=== PATIENT | male | born 1930 | race Caucasian/White ===

== ENCOUNTER 2017-08-03 17:01 | Inpatient (IN) | payer MEDICARE, OTHER ==
[~2017-08-03] VITALS: Ht 182.9 cm; Wt 79.5 kg
[2017-08-03] MEDS ORDERED: normal saline 1000ML IV soln IVB ONE (20:10)
[2017-08-03 20:15] LABS: BASOPHILS % (AUTO) 0.1 % (0-1); EOSINOPHILS % (AUTO) 0 % (0-6); HEMATOCRIT 34.8 % (42.0-52.0); HEMOGLOBIN 12.1 g/dl (14.0-17.9); LYMPHOCYTES # (AUTO) 0.7 X10'3 (1.1-4.8); LYMPHOCYTES % (AUTO) 3.1 % (21-51); MEAN CORPUSCULAR HEMOGLOBIN 29.8 PG (27.0-31.0); MEAN CORPUSCULAR HGB CONC 34.6 % (33.0-36.5); MEAN PLATELET VOLUME 6.5 FL (7.4-10.4); MONOCYTES # (AUTO) 0.9 X10'3 (0-0.9); MONOCYTES % (AUTO) 4.2 % (2-12); NEUTROPHILS # (AUTO) 20.8 X10'3 (1.8-7.7); NEUTROPHILS % (AUTO) 92.6 % (42-75); PLATELET COUNT 316 X10'3 (140-440); RED BLOOD COUNT 4.05 X10'6 (4.70-6.10); WHITE BLOOD COUNT 22.4 X10'3 (4.5-11.0)
[2017-08-03 20:32] LABS: ALANINE AMINOTRANSFERASE 19 U/L (12-78); ALBUMIN 2.7 G/DL (3.4-5.0); ALBUMIN/GLOBULIN RATIO 0.7 (1.1-1.5); ALKALINE PHOSPHATASE 82 IU/L (46-116); ANION GAP 12 (8-16); ASPARTATE AMINO TRANSFERASE 15 U/L (10-37); BILIRUBIN,TOTAL 1.6 MG/DL (0.1-1.0); BLOOD UREA NITROGEN 19 MG/DL (7-18); BUN/CREATININE RATIO 19.8 (5.4-32.0); CALCIUM 8.3 MG/DL (8.5-10.1); CHLORIDE 98 MMOL/L (99-107); CREATININE 0.96 MG/DL (0.60-1.10); GLUCOSE 196 MG/DL (70-104); MAGNESIUM 1.5 MG/DL (1.5-2.4); SODIUM 135 MMOL/L (135-145); TOTAL CARBON DIOXIDE 25.3 MMOL/L (24-32); TOTAL PROTEIN 6.7 G/DL (6.4-8.2); eGFR 74 ML/MIN
[2017-08-03 20:47] LABS: INR 1.7 INR; PARTIAL THROMBOPLASTIN TIME 35 SECONDS (22-32); PROTHROMBIN TIME 17.1 SECONDS (9.0-12.0)
[2017-08-03] MEDS ORDERED: CefTRIAXone 2gm/NS 100ml IVPB 100 ML IV ONE (20:55)
[2017-08-03] MEDS ORDERED: normal saline 1000ML IV soln IV ONE (20:55)
[2017-08-03 20:59] LABS: PLATELET ESTIMATE NORMAL; TOTAL CELLS COUNTED 100
[2017-08-03] MEDS ORDERED: ACET-2319 PO (21:59)
[2017-08-03] MEDS ORDERED: CHOL50004 PO (21:59)
[2017-08-03] MEDS ORDERED: GLIP5TAB13 PO (21:59)
[2017-08-03] MEDS ORDERED: WARF2.5T PO (21:59)
[2017-08-03] MEDS ORDERED: ATOR20TA PO (21:59)
[2017-08-03] MEDS ORDERED: OMEP40CA37 PO (21:59)
[2017-08-03] MEDS ORDERED: METF500T PO (21:59)
[2017-08-03] MEDS ORDERED: WARF5TAB PO (21:59)
[2017-08-03 22:03] LABS: CLARITY,URINE CLEAR (Clear); COLOR,URINE YELLOW (Yellow); GLUCOSE, URINE NEGATIVE (Neg); KETONES,URINE 40 mg/dl (Neg); LEUKOCYTE ESTERASE ,URINE NEGATIVE (Neg); NITRITES, URINE NEGATIVE (Neg); OCCULT BLOOD,URINE NEGATIVE (Neg); PH,URINE 5.5 (4.8-8.0); PROTEIN,URINE TRACE mg/dl (Neg)
[2017-08-03 22:10] LABS: UA COLLECTION TYPE STRAIGHT CATH
[2017-08-03 22:12] LABS: BACTERIA,URINE FEW /HPF (Neg); RBC,URINE NONE SEEN /HPF (0-2); SQUAMOUS EPITHELIAL CELL,UR FEW /LPF (FEW); WBC,URINE NONE SEEN /HPF (0-4)
[2017-08-03] MEDS ORDERED: magnesium 2GM in 50ml NS 50 ML IV PRN (22:25)
[2017-08-03] MEDS ORDERED: magnesium hydroxide 30ml (MOM) UD suspension PO PRN (22:25)
[2017-08-03] MEDS ORDERED: magnesium 4gm in 100ml NS 100 ML IV PRN (22:25)
[2017-08-03] MEDS ORDERED: ondansetron/PF 4mg/2ml inj IV PRN (22:25)
[2017-08-03] MEDS ORDERED: mag hydrox/Alum hydrox/simeth 30ml oral suspension PO PRN (22:25)
[2017-08-03] MEDS ORDERED: potassium Cl 40MEQ/NS 500ml 500 ML IV PRN ×2 (22:25)
[2017-08-03] MEDS ORDERED: acetaminophen 325mg tablet PO PRN (22:25)
[2017-08-03] MEDS ORDERED: potassium Cl 20 mEq SR tablet PO PRN (22:25)
[2017-08-03] MEDS ORDERED: dextrose 50%-water 50ml dispensing syringe IV PRN ×2 (22:35)
[2017-08-03] MEDS ORDERED: insulin Lispro (HumaLOG) vial - multi-dose SQ SCH (22:35)
[2017-08-03] MEDS ORDERED: glucagon, human recombinant 1mg kit SUBCUT PRN (22:35)
[2017-08-03] MEDS ORDERED: MESSAGE TO PHARMACY PO ONE (22:35)
[2017-08-03] MEDS ORDERED: dextrose ORAL solution 15 GM/59 ML bottle PO PRN ×2 (22:35)
[2017-08-03] MEDS: normal saline 1000ml 1,000 ML IV SCH (22:56)
[2017-08-03 23:01] LABS: HEMOGLOBIN A1C 7.6 % (4.5-6.2)
[2017-08-04 06:27] LABS: BASOPHILS % (AUTO) 0.1 % (0-1); EOSINOPHILS # (AUTO) 0.3 X10'3 (0-0.9); EOSINOPHILS % (AUTO) 2.1 % (0-6); HEMATOCRIT 30.1 % (42.0-52.0); HEMOGLOBIN 10.3 g/dl (14.0-17.9); LYMPHOCYTES # (AUTO) 0.7 X10'3 (1.1-4.8); MEAN CORPUSCULAR HEMOGLOBIN 29.5 PG (27.0-31.0); MEAN CORPUSCULAR HGB CONC 34.3 % (33.0-36.5); MEAN PLATELET VOLUME 6.8 FL (7.4-10.4); MONOCYTES % (AUTO) 7.3 % (2-12); NEUTROPHILS # (AUTO) 11.8 X10'3 (1.8-7.7); NEUTROPHILS % (AUTO) 85.5 % (42-75); PLATELET COUNT 266 X10'3 (140-440); RED CELL DISTRIBUTION WIDTH 14.2 % (11.5-14.5); WHITE BLOOD COUNT 13.8 X10'3 (4.5-11.0)
[2017-08-04 06:40] LABS: ALBUMIN 2.3 G/DL (3.4-5.0); ANION GAP 9 (8-16); BLOOD UREA NITROGEN 17 MG/DL (7-18); BUN/CREATININE RATIO 19.1 (5.4-32.0); CALCIUM 7.6 MG/DL (8.5-10.1); CHLORIDE 104 MMOL/L (99-107); CREATININE 0.89 MG/DL (0.60-1.10); GLUCOSE 150 MG/DL (70-104); MAGNESIUM 1.5 MG/DL (1.5-2.4); POTASSIUM 3.7 MMOL/L (3.5-5.1); SODIUM 139 MMOL/L (135-145); TOTAL CARBON DIOXIDE 26.3 MMOL/L (24-32); eGFR 81 ML/MIN
[2017-08-04] MEDS ORDERED: glipizide 5mg tablet PO SCH (08:00)
[2017-08-04] MEDS: K and/or MAG REPLACEMENT MC SCH (08:00)
[2017-08-04] MEDS ORDERED: non-formulary drug (Omeprazole (Prilosec) 1 CAP) PO SCH (08:00)
[2017-08-04] MEDS ORDERED: CefTRIAXone/D5W-Rocephin 1gm 50 ML IV SCH (08:00)
[2017-08-04] MEDS: metFORMIN 500mg tablet PO SCH ×2 (08:14→17:24)
[2017-08-04] MEDS: pantoprazole 40mg Tablet.DR PO SCH (08:15)
[2017-08-04] MEDS: normal saline 1000ml 1,000 ML IV SCH (12:13)
[2017-08-04 18:00] VITALS: BP 131/77
[2017-08-04] MEDS: lactobacillus rhamnosus 10,000 MMU CELLS/CAPSULE PO SCH (20:26)
[2017-08-04] MEDS: atorvastatin 20mg tablet PO SCH (20:26)
[2017-08-04] MEDS: warfarin 2.5mg tablet PO SCH (20:27)
[2017-08-04] MEDS: insulin glargine (Lantus) pen - multi-dose SQ SCH (21:14)
[2017-08-04 23:00] VITALS: BP 98/55
[2017-08-05] MEDS: normal saline 1000ml 1,000 ML IV SCH ×2 (01:03→06:52)
[2017-08-05 03:00] VITALS: BP 97/54
[2017-08-05 05:43] LABS: BASOPHILS % (AUTO) 0.2 % (0-1); EOSINOPHILS # (AUTO) 0.2 X10'3 (0-0.9); EOSINOPHILS % (AUTO) 1.8 % (0-6); HEMATOCRIT 29.5 % (42.0-52.0); HEMOGLOBIN 10.3 g/dl (14.0-17.9); LYMPHOCYTES # (AUTO) 0.6 X10'3 (1.1-4.8); LYMPHOCYTES % (AUTO) 4.4 % (21-51); MEAN CORPUSCULAR HEMOGLOBIN 29.7 PG (27.0-31.0); MEAN CORPUSCULAR HGB CONC 34.8 % (33.0-36.5); MEAN CORPUSCULAR VOLUME 85.4 FL (78-98); MEAN PLATELET VOLUME 6.8 FL (7.4-10.4); MONOCYTES # (AUTO) 0.9 X10'3 (0-0.9); MONOCYTES % (AUTO) 7.4 % (2-12); NEUTROPHILS # (AUTO) 10.8 X10'3 (1.8-7.7); NEUTROPHILS % (AUTO) 86.2 % (42-75); PLATELET COUNT 273 X10'3 (140-440); RED BLOOD COUNT 3.45 X10'6 (4.70-6.10); RED CELL DISTRIBUTION WIDTH 13.9 % (11.5-14.5); WHITE BLOOD COUNT 12.5 X10'3 (4.5-11.0)
[2017-08-05 05:52] LABS: INR 2.1 INR; PROTHROMBIN TIME 20.8 SECONDS (9.0-12.0)
[2017-08-05 05:54] LABS: ALBUMIN 2.1 G/DL (3.4-5.0); ANION GAP 8 (8-16); BLOOD UREA NITROGEN 14 MG/DL (7-18); BUN/CREATININE RATIO 17.5 (5.4-32.0); CALCIUM 7.5 MG/DL (8.5-10.1); CHLORIDE 104 MMOL/L (99-107); GLUCOSE 127 MG/DL (70-104); MAGNESIUM 1.4 MG/DL (1.5-2.4); POTASSIUM 3.4 MMOL/L (3.5-5.1); SODIUM 138 MMOL/L (135-145); TOTAL CARBON DIOXIDE 26.3 MMOL/L (24-32); eGFR > 90 ML/MIN
[2017-08-05 06:30] VITALS: BP 98/51
[2017-08-05] MEDS: magnesium Cl slow-release 64mg tablet PO PRN ×2 (06:51→21:01)
[2017-08-05] MEDS: potassium Cl 20 mEq SR tablet PO PRN ×3 (06:51→15:44)
[2017-08-05] MEDS: metFORMIN 500mg tablet PO SCH ×2 (06:51→16:51)
[2017-08-05] MEDS: pantoprazole 40mg Tablet.DR PO SCH (06:53)
[2017-08-05] MEDS: K and/or MAG REPLACEMENT MC SCH (08:00)
[2017-08-05] MEDS: CefTRIAXone/D5W-Rocephin 1gm 50 ML IV SCH (08:30)
[2017-08-05] MEDS: lactobacillus rhamnosus 10,000 MMU CELLS/CAPSULE PO SCH ×2 (08:30→21:03)
[2017-08-05 11:01] VITALS: BP 110/63
[2017-08-05 15:00] VITALS: BP 105/64
[2017-08-05] MEDS: atorvastatin 20mg tablet PO SCH (21:03)
[2017-08-05] MEDS: warfarin 2.5mg tablet PO SCH (21:05)
[2017-08-05] MEDS: insulin glargine (Lantus) pen - multi-dose SQ SCH (21:18)
[2017-08-05 23:00] VITALS: BP 126/67
[2017-08-06] MEDS: normal saline 1000ml 1,000 ML IV SCH ×2 (03:43→11:13)
[2017-08-06 05:23] LABS: BASOPHILS % (AUTO) 0.2 % (0-1); EOSINOPHILS # (AUTO) 0.1 X10'3 (0-0.9); EOSINOPHILS % (AUTO) 0.9 % (0-6); HEMATOCRIT 29.7 % (42.0-52.0); HEMOGLOBIN 10.2 g/dl (14.0-17.9); LYMPHOCYTES # (AUTO) 0.5 X10'3 (1.1-4.8); LYMPHOCYTES % (AUTO) 5.2 % (21-51); MEAN CORPUSCULAR HEMOGLOBIN 29.3 PG (27.0-31.0); MEAN CORPUSCULAR HGB CONC 34.4 % (33.0-36.5); MEAN CORPUSCULAR VOLUME 85.2 FL (78-98); MEAN PLATELET VOLUME 6.7 FL (7.4-10.4); MONOCYTES # (AUTO) 0.9 X10'3 (0-0.9); MONOCYTES % (AUTO) 8.3 % (2-12); NEUTROPHILS # (AUTO) 9.1 X10'3 (1.8-7.7); NEUTROPHILS % (AUTO) 85.4 % (42-75); PLATELET COUNT 277 X10'3 (140-440); RED BLOOD COUNT 3.48 X10'6 (4.70-6.10); RED CELL DISTRIBUTION WIDTH 13.9 % (11.5-14.5); WHITE BLOOD COUNT 10.7 X10'3 (4.5-11.0)
[2017-08-06 05:45] LABS: INR 2.3 INR; PROTHROMBIN TIME 22.8 SECONDS (9.0-12.0)
[2017-08-06 05:49] LABS: ALBUMIN 2.1 G/DL (3.4-5.0); ANION GAP 5 (8-16); BLOOD UREA NITROGEN 9 MG/DL (7-18); BUN/CREATININE RATIO 12.2 (5.4-32.0); CALCIUM 7.8 MG/DL (8.5-10.1); CHLORIDE 104 MMOL/L (99-107); CREATININE 0.74 MG/DL (0.60-1.10); GLUCOSE 110 MG/DL (70-104); MAGNESIUM 1.4 MG/DL (1.5-2.4); POTASSIUM 3.7 MMOL/L (3.5-5.1); SODIUM 137 MMOL/L (135-145); TOTAL CARBON DIOXIDE 27.6 MMOL/L (24-32); eGFR > 90 ML/MIN
[2017-08-06 07:00] VITALS: BP 110/52
[2017-08-06] MEDS: K and/or MAG REPLACEMENT MC SCH (08:00)
[2017-08-06] MEDS: metFORMIN 500mg tablet PO SCH (09:07)
[2017-08-06] MEDS: pantoprazole 40mg Tablet.DR PO SCH (09:07)
[2017-08-06] MEDS: lactobacillus rhamnosus 10,000 MMU CELLS/CAPSULE PO SCH ×2 (09:07→21:39)
[2017-08-06] MEDS: CefTRIAXone/D5W-Rocephin 1gm 50 ML IV SCH (09:08)
[2017-08-06 11:00] VITALS: BP 130/60
[2017-08-06 14:37] VITALS: BP 108/58
[2017-08-06] MEDS: cefazolin 1gm/NS 100mL 100 ML IV SCH (19:13)
[2017-08-06 20:00] VITALS: BP 136/65
[2017-08-06] MEDS: atorvastatin 20mg tablet PO SCH (21:39)
[2017-08-06] MEDS: warfarin 2.5mg tablet PO SCH (21:40)
[2017-08-06] MEDS: insulin glargine (Lantus) pen - multi-dose SQ SCH (22:16)
[2017-08-07] VITALS: BP 139/64
[2017-08-07] MEDS: cefazolin 1gm/NS 100mL 100 ML IV SCH ×4 (00:09→21:00)
[2017-08-07] MEDS: normal saline 1000ml 1,000 ML IV SCH (05:21)
[2017-08-07 05:49] LABS: BASOPHILS % (AUTO) 0.2 % (0-1); EOSINOPHILS # (AUTO) 0.2 X10'3 (0-0.9); EOSINOPHILS % (AUTO) 2.4 % (0-6); HEMATOCRIT 29.8 % (42.0-52.0); HEMOGLOBIN 10.2 g/dl (14.0-17.9); LYMPHOCYTES # (AUTO) 0.5 X10'3 (1.1-4.8); LYMPHOCYTES % (AUTO) 4.9 % (21-51); MEAN CORPUSCULAR HEMOGLOBIN 29.3 PG (27.0-31.0); MEAN CORPUSCULAR HGB CONC 34.1 % (33.0-36.5); MEAN CORPUSCULAR VOLUME 85.9 FL (78-98); MONOCYTES # (AUTO) 1.1 X10'3 (0-0.9); MONOCYTES % (AUTO) 10.6 % (2-12); NEUTROPHILS # (AUTO) 8.5 X10'3 (1.8-7.7); NEUTROPHILS % (AUTO) 81.9 % (42-75); PLATELET COUNT 288 X10'3 (140-440); RED BLOOD COUNT 3.47 X10'6 (4.70-6.10); RED CELL DISTRIBUTION WIDTH 13.7 % (11.5-14.5); WHITE BLOOD COUNT 10.3 X10'3 (4.5-11.0)
[2017-08-07 05:52] LABS: INR 2.3 INR; PROTHROMBIN TIME 23.4 SECONDS (9.0-12.0)
[2017-08-07 06:00] LABS: ALBUMIN 2.1 G/DL (3.4-5.0); ANION GAP 8 (8-16); BLOOD UREA NITROGEN 9 MG/DL (7-18); CALCIUM 7.8 MG/DL (8.5-10.1); CHLORIDE 102 MMOL/L (99-107); CREATININE 0.75 MG/DL (0.60-1.10); GLUCOSE 96 MG/DL (70-104); POTASSIUM 3.7 MMOL/L (3.5-5.1); SODIUM 138 MMOL/L (135-145); TOTAL CARBON DIOXIDE 28.5 MMOL/L (24-32); eGFR > 90 ML/MIN
[2017-08-07 07:00] VITALS: BP 125/70
[2017-08-07] MEDS: K and/or MAG REPLACEMENT MC SCH (08:00)
[2017-08-07] MEDS: pantoprazole 40mg Tablet.DR PO SCH (08:14)
[2017-08-07] MEDS: lactobacillus rhamnosus 10,000 MMU CELLS/CAPSULE PO SCH ×2 (08:14→21:16)
[2017-08-07 11:00] VITALS: BP 129/74
[2017-08-07 14:26] VITALS: BP 125/61
[2017-08-07 16:51] VITALS: BP 113/63
[2017-08-07 20:00] VITALS: BP 130/67
[2017-08-07] MEDS: atorvastatin 20mg tablet PO SCH (21:09)
[2017-08-07] MEDS: warfarin 2.5mg tablet PO SCH (21:10)
[2017-08-07] MEDS: insulin glargine (Lantus) pen - multi-dose SQ SCH (21:32)
[2017-08-08] VITALS: BP 114/61
[2017-08-08] MEDS: normal saline 1000ml 1,000 ML IV SCH ×2 (03:00→09:03)
[2017-08-08 06:13] LABS: BASOPHILS % (AUTO) 0.1 % (0-1); EOSINOPHILS # (AUTO) 0.1 X10'3 (0-0.9); EOSINOPHILS % (AUTO) 0.7 % (0-6); HEMATOCRIT 28.4 % (42.0-52.0); HEMOGLOBIN 9.7 g/dl (14.0-17.9); LYMPHOCYTES # (AUTO) 0.4 X10'3 (1.1-4.8); LYMPHOCYTES % (AUTO) 3.6 % (21-51); MEAN CORPUSCULAR HEMOGLOBIN 29.2 PG (27.0-31.0); MEAN CORPUSCULAR HGB CONC 34.1 % (33.0-36.5); MEAN CORPUSCULAR VOLUME 85.7 FL (78-98); MEAN PLATELET VOLUME 6.8 FL (7.4-10.4); MONOCYTES # (AUTO) 1.1 X10'3 (0-0.9); MONOCYTES % (AUTO) 9.7 % (2-12); NEUTROPHILS # (AUTO) 9.8 X10'3 (1.8-7.7); NEUTROPHILS % (AUTO) 85.9 % (42-75); PLATELET COUNT 279 X10'3 (140-440); RED BLOOD COUNT 3.31 X10'6 (4.70-6.10); RED CELL DISTRIBUTION WIDTH 13.7 % (11.5-14.5); WHITE BLOOD COUNT 11.5 X10'3 (4.5-11.0)
[2017-08-08 06:17] LABS: INR 2.2 INR
[2017-08-08 06:37] LABS: ALBUMIN 1.9 G/DL (3.4-5.0); ANION GAP 4 (8-16); BLOOD UREA NITROGEN 10 MG/DL (7-18); BUN/CREATININE RATIO 11.8 (5.4-32.0); CALCIUM 7.6 MG/DL (8.5-10.1); CHLORIDE 102 MMOL/L (99-107); CREATININE 0.85 MG/DL (0.60-1.10); GLUCOSE 83 MG/DL (70-104); MAGNESIUM 1.8 MG/DL (1.5-2.4); POTASSIUM 3.7 MMOL/L (3.5-5.1); SODIUM 135 MMOL/L (135-145); TOTAL CARBON DIOXIDE 28.6 MMOL/L (24-32); eGFR 85 ML/MIN
[2017-08-08 07:50] VITALS: BP 96/52
[2017-08-08] MEDS: K and/or MAG REPLACEMENT MC SCH (08:00)
[2017-08-08] MEDS: lactobacillus rhamnosus 10,000 MMU CELLS/CAPSULE PO SCH (09:18)
[2017-08-08] MEDS: cefazolin 1gm/NS 100mL 100 ML IV SCH (09:19)
[2017-08-08] MEDS: pantoprazole 40mg Tablet.DR PO SCH (09:19)
[2017-08-08 11:45] VITALS: BP 113/63
[2017-08-08] MEDS ORDERED: CEFA1VIA10 IV (13:18)
[2017-08-08] MEDS ORDERED: ceFAZolin inj. 1,000 MG in dextrose 5%-water 50ml 50 ML IV SCH (16:00)
== END 2017-08-08 16:52 | DRG 871 ==
LOC: ER 17:03 → ED HOLD 22:23 → PCU 3S 08-04 16:25 → SUR 3N 08-05 21:34
PROVIDERS: ADMIT Family Medicine; ATTEND Legal Medicine
DX: A41.1 Sepsis due to other specified staphylococcus (principal); G93.40 Encephalopathy, unspecified; I48.91 Unspecified atrial fibrillation; E11.65 Type 2 diabetes mellitus with hyperglycemia; E86.0 Dehydration; D64.9 Anemia, unspecified; N39.0 Urinary tract infection, site not specified; E78.5 Hyperlipidemia, unspecified; R79.1 Abnormal coagulation profile; Z66 Do not resuscitate; Z88.0 Allergy status to penicillin; Z79.899 Other long term (current) drug therapy; Z79.01 Long term (current) use of anticoagulants; Z87.442 Personal history of urinary calculi; Z82.49 Family history of ischemic heart disease and other diseases of the circulatory system
CPT/HCPCS: 36415; 71045; 80048; 80053; 81001; 82948; 83036; 83605; 83735; 84145; 85025; 85610; 85730; 87040; 87070; 87077; 87186; 93005; 93306; 96361; 96365; 97116; 97161; 97530; 99285; A4353; J0690; J0696; J1815; J3475; J7030; J7060

== ENCOUNTER 2017-09-08 13:02 | Inpatient (IN) | payer MEDICARE, OTHER ==
[~2017-09-08] VITALS: Ht 180.3 cm; Wt 70.0 kg
[~2017-09-08 13:02] MED LIST: ATOR20TA PO; CEFA1VIA10 IV; CHOL50004 PO; METF500T PO; OMEP40CA37 PO; WARF2.5T PO; WARF5TAB PO
[2017-09-08] MEDS ORDERED: normal saline 1000ML IV soln IVB ONE (13:10)
[2017-09-08 13:36] LABS: BASOPHILS % (AUTO) 0 % (0-1); EOSINOPHILS # (AUTO) 0.5 X10'3 (0-0.9); EOSINOPHILS % (AUTO) 2.3 % (0-6); HEMATOCRIT 30.3 % (42.0-52.0); HEMOGLOBIN 10.2 g/dl (14.0-17.9); LYMPHOCYTES # (AUTO) 0.3 X10'3 (1.1-4.8); LYMPHOCYTES % (AUTO) 1.4 % (21-51); MEAN CORPUSCULAR HEMOGLOBIN 28.1 PG (27.0-31.0); MEAN CORPUSCULAR HGB CONC 33.8 % (33.0-36.5); MEAN CORPUSCULAR VOLUME 83.1 FL (78-98); MEAN PLATELET VOLUME 7.2 FL (7.4-10.4); MONOCYTES # (AUTO) 0.9 X10'3 (0-0.9); MONOCYTES % (AUTO) 3.7 % (2-12); NEUTROPHILS # (AUTO) 21.8 X10'3 (1.8-7.7); NEUTROPHILS % (AUTO) 92.6 % (42-75); PLATELET COUNT 149 X10'3 (140-440); RED BLOOD COUNT 3.65 X10'6 (4.70-6.10); RED CELL DISTRIBUTION WIDTH 15.1 % (11.5-14.5); WHITE BLOOD COUNT 23.5 X10'3 (4.5-11.0)
[2017-09-08 13:44] LABS: PROTHROMBIN TIME 47.6 SECONDS (9.0-12.0)
[2017-09-08 13:50] LABS: INR 4.9 INR
[2017-09-08 13:53] LABS: ALANINE AMINOTRANSFERASE 12 U/L (12-78); ALBUMIN 2.1 G/DL (3.4-5.0); ALBUMIN/GLOBULIN RATIO 0.6 (1.1-1.5); ALKALINE PHOSPHATASE 93 IU/L (46-116); ANION GAP 10 (8-16); ASPARTATE AMINO TRANSFERASE 15 U/L (10-37); BILIRUBIN,TOTAL 1.4 MG/DL (0.1-1.0); BLOOD UREA NITROGEN 29 MG/DL (7-18); CALCIUM 7.9 MG/DL (8.5-10.1); CHLORIDE 100 MMOL/L (99-107); CREATININE 1.21 MG/DL (0.60-1.10); GLUCOSE 166 MG/DL (70-104); MAGNESIUM 1.7 MG/DL (1.5-2.4); SODIUM 132 MMOL/L (135-145); TOTAL CARBON DIOXIDE 21.6 MMOL/L (24-32); TOTAL PROTEIN 5.6 G/DL (6.4-8.2); eGFR 57 ML/MIN
[2017-09-08] MEDS ORDERED: CefTRIAXone 2gm/D5W 50ml 50 ML IV ONE (14:05)
[2017-09-08 14:23] LABS: CLARITY,URINE TURBID (Clear); COLOR,URINE YELLOW (Yellow); GLUCOSE, URINE NEGATIVE (Neg); KETONES,URINE 15 mg/dl (Neg); LEUKOCYTE ESTERASE ,URINE TRACE (Neg); NITRITES, URINE NEGATIVE (Neg); OCCULT BLOOD,URINE NEGATIVE (Neg); PROTEIN,URINE TRACE mg/dl (Neg)
[2017-09-08 14:28] LABS: UA COLLECTION TYPE FOLEY CATH
[2017-09-08 14:34] LABS: MUCUS STRANDS NONE SEEN /LPF (Neg); SQUAMOUS EPITHELIAL CELL,UR FEW /LPF (FEW); TRANSITIONAL EPI CELLS,URINE FEW /HPF
[2017-09-08 14:35] LABS: YEAST MANY /HPF (NEGATIVE)
[2017-09-08 14:36] LABS: BACTERIA,URINE 4+ /HPF (Neg); RBC,URINE NONE SEEN /HPF (0-2)
[2017-09-08 14:51] LABS: NEUTROPHILS % (MANUAL) 92 % (42-75); TOTAL CELLS COUNTED 100
[2017-09-08 14:52] LABS: ACANTHOCYTES FEW; BURR CELLS FEW; PLATELET ESTIMATE NORMAL
[2017-09-08] MEDS ORDERED: levoFLOXACIN-Levaquin 500mg/D5 100 ML IV ONE (15:25)
[2017-09-08] MEDS ORDERED: acetaminophen 325mg tablet PO ONE (16:05)
[2017-09-08] MEDS ORDERED: acetaminophen 325mg tablet ONE (16:08)
[2017-09-08] MEDS ORDERED: acetaminophen 325mg tablet PO PRN (16:10)
[2017-09-08] MEDS ORDERED: ondansetron/PF 4mg/2ml inj IV PRN (16:10)
[2017-09-08] MEDS ORDERED: glucagon, human recombinant 1mg kit SUBCUT PRN (16:15)
[2017-09-08] MEDS ORDERED: MESSAGE TO PHARMACY PO ONE (16:15)
[2017-09-08] MEDS ORDERED: dextrose 50%-water 50ml dispensing syringe IV PRN ×2 (16:15)
[2017-09-08] MEDS ORDERED: dextrose ORAL solution 15 GM/59 ML bottle PO PRN ×2 (16:15)
[2017-09-08] MEDS: normal saline 1000ml 1,000 ML IV SCH (16:55)
[2017-09-08] MEDS: insulin glargine (Lantus) pen - multi-dose SQ SCH (20:30)
[2017-09-08] MEDS: atorvastatin 20mg tablet PO SCH (22:08)
[2017-09-09] VITALS (7 sets, daily range): BP systolic 96–122; BP diastolic 39–52
[2017-09-09] MEDS ORDERED: aztreonam 1,000MG vial ONE (00:39)
[2017-09-09] MEDS: aztreonam inj. 1,000 MG in normal saline 100ml IV soln 100 ML IV SCH ×2 (00:44→08:27)
[2017-09-09] MEDS: normal saline 1000ml 1,000 ML IV SCH (00:48)
[2017-09-09] MEDS: pantoprazole 40mg Tablet.DR PO SCH (08:27)
[2017-09-09] MEDS: vitamin D (cholecalciferol) 1,000 unit tablet PO SCH (08:27)
[2017-09-09] MEDS ORDERED: DEXTROSE 5% IV SCH (12:00)
[2017-09-09] MEDS ORDERED: AZTREONAM IV SCH (12:00)
[2017-09-09] MEDS ORDERED: WATER IV SCH (12:00)
[2017-09-09] MEDS: aztreonam inj. 1,000 MG in dextrose 5%-water 50ml 50 ML IV SCH (16:10)
[2017-09-09 19:04] LABS: BASOPHILS % (AUTO) 0 % (0-1); EOSINOPHILS # (AUTO) 0.3 X10'3 (0-0.9); EOSINOPHILS % (AUTO) 1.7 % (0-6); HEMATOCRIT 31.8 % (42.0-52.0); HEMOGLOBIN 10.8 g/dl (14.0-17.9); LYMPHOCYTES # (AUTO) 0.4 X10'3 (1.1-4.8); LYMPHOCYTES % (AUTO) 2.3 % (21-51); MEAN CORPUSCULAR HEMOGLOBIN 28.3 PG (27.0-31.0); MEAN CORPUSCULAR HGB CONC 33.9 % (33.0-36.5); MEAN CORPUSCULAR VOLUME 83.7 FL (78-98); MEAN PLATELET VOLUME 7.5 FL (7.4-10.4); MONOCYTES # (AUTO) 1.2 X10'3 (0-0.9); MONOCYTES % (AUTO) 6.3 % (2-12); NEUTROPHILS # (AUTO) 17.8 X10'3 (1.8-7.7); NEUTROPHILS % (AUTO) 89.7 % (42-75); PLATELET COUNT 119 X10'3 (140-440); RED CELL DISTRIBUTION WIDTH 16.4 % (11.5-14.5); WHITE BLOOD COUNT 19.9 X10'3 (4.5-11.0)
[2017-09-09 19:14] LABS: ALBUMIN 2.1 G/DL (3.4-5.0); ANION GAP 11 (8-16); BLOOD UREA NITROGEN 37 MG/DL (7-18); BUN/CREATININE RATIO 26.1 (5.4-32.0); CHLORIDE 97 MMOL/L (99-107); CREATININE 1.42 MG/DL (0.60-1.10); GLUCOSE 174 MG/DL (70-104); POTASSIUM 5.1 MMOL/L (3.5-5.1); SODIUM 130 MMOL/L (135-145); TOTAL CARBON DIOXIDE 21.8 MMOL/L (24-32); eGFR 47 ML/MIN
[2017-09-09 19:18] LABS: PROTHROMBIN TIME 44.3 SECONDS (9.0-12.0)
[2017-09-09 19:26] LABS: INR 4.5 INR
[2017-09-09] MEDS: lactobacillus rhamnosus 10,000 MMU CELLS/CAPSULE PO SCH (19:51)
[2017-09-09] MEDS: insulin glargine (Lantus) pen - multi-dose SQ SCH (21:00)
[2017-09-09] MEDS: atorvastatin 20mg tablet PO SCH (21:44)
[2017-09-10] MEDS: aztreonam inj. 1,000 MG in dextrose 5%-water 50ml 50 ML IV SCH ×2 (00:09→07:11)
[2017-09-10 02:00] VITALS: BP 108/40
[2017-09-10 05:09] LABS: BASOPHILS % (AUTO) 0 % (0-1); EOSINOPHILS # (AUTO) 0.4 X10'3 (0-0.9); EOSINOPHILS % (AUTO) 2.5 % (0-6); HEMATOCRIT 28.8 % (42.0-52.0); HEMOGLOBIN 9.8 g/dl (14.0-17.9); LYMPHOCYTES # (AUTO) 0.4 X10'3 (1.1-4.8); LYMPHOCYTES % (AUTO) 2.7 % (21-51); MEAN CORPUSCULAR HEMOGLOBIN 28.2 PG (27.0-31.0); MONOCYTES # (AUTO) 1.3 X10'3 (0-0.9); MONOCYTES % (AUTO) 8.1 % (2-12); NEUTROPHILS # (AUTO) 14.3 X10'3 (1.8-7.7); NEUTROPHILS % (AUTO) 86.7 % (42-75); PLATELET COUNT 117 X10'3 (140-440); RED BLOOD COUNT 3.47 X10'6 (4.70-6.10); RED CELL DISTRIBUTION WIDTH 16.2 % (11.5-14.5); WHITE BLOOD COUNT 16.5 X10'3 (4.5-11.0)
[2017-09-10 05:11] LABS: INR 3.8 INR; PROTHROMBIN TIME 37.4 SECONDS (9.0-12.0)
[2017-09-10 06:29] LABS: ALBUMIN 1.9 G/DL (3.4-5.0); ANION GAP 10 (8-16); BLOOD UREA NITROGEN 35 MG/DL (7-18); BUN/CREATININE RATIO 29.2 (5.4-32.0); CALCIUM 7.8 MG/DL (8.5-10.1); CHLORIDE 99 MMOL/L (99-107); GLUCOSE 159 MG/DL (70-104); MAGNESIUM 1.8 MG/DL (1.5-2.4); POTASSIUM 4.6 MMOL/L (3.5-5.1); SODIUM 131 MMOL/L (135-145); TOTAL CARBON DIOXIDE 22.1 MMOL/L (24-32); eGFR 57 ML/MIN
[2017-09-10 06:49] VITALS: BP 115/45
[2017-09-10] MEDS: vitamin D (cholecalciferol) 1,000 unit tablet PO SCH (07:11)
[2017-09-10] MEDS: pantoprazole 40mg Tablet.DR PO SCH (07:11)
[2017-09-10] MEDS: lactobacillus rhamnosus 10,000 MMU CELLS/CAPSULE PO SCH ×2 (07:11→19:59)
[2017-09-10] MEDS ORDERED: furosemide 40mg/4ml inj IV ONE (08:25)
[2017-09-10 11:00] VITALS: BP 115/38
[2017-09-10] MEDS: insulin Lispro (HumaLOG) vial - multi-dose SQ SCH ×2 (12:19→19:58)
[2017-09-10 15:00] VITALS: BP 109/40
[2017-09-10] MEDS ORDERED: vancomycin/NS 1 GM ADD-VANTAGE 250 ML IV SCH (18:00)
[2017-09-10 19:00] VITALS: BP 118/40
[2017-09-10] MEDS: atorvastatin 20mg tablet PO SCH (20:03)
[2017-09-10] MEDS ORDERED: diphenhydrAMINE 50 mg/ml inj IV PRN (20:40)
[2017-09-10] MEDS: ceFAZolin 1GM/D5W- ADD-VANTAGE 50 ML IV SCH (21:28)
[2017-09-10] MEDS: insulin glargine (Lantus) pen - multi-dose SQ SCH (21:55)
[2017-09-10 23:00] VITALS: BP 110/62
[2017-09-11] MEDS: ceFAZolin 1GM/D5W- ADD-VANTAGE 50 ML IV SCH ×3 (02:29→14:10)
[2017-09-11 03:00] VITALS: BP 101/35
[2017-09-11 05:27] LABS: BASOPHILS % (AUTO) 0 % (0-1); EOSINOPHILS # (AUTO) 0.3 X10'3 (0-0.9); EOSINOPHILS % (AUTO) 2.7 % (0-6); HEMOGLOBIN 9.5 g/dl (14.0-17.9); LYMPHOCYTES # (AUTO) 0.5 X10'3 (1.1-4.8); LYMPHOCYTES % (AUTO) 3.8 % (21-51); MEAN CORPUSCULAR HGB CONC 34.1 % (33.0-36.5); MONOCYTES # (AUTO) 1.1 X10'3 (0-0.9); MONOCYTES % (AUTO) 8.5 % (2-12); NEUTROPHILS # (AUTO) 10.6 X10'3 (1.8-7.7); PLATELET COUNT 126 X10'3 (140-440); RED BLOOD COUNT 3.41 X10'6 (4.70-6.10); RED CELL DISTRIBUTION WIDTH 16.8 % (11.5-14.5); WHITE BLOOD COUNT 12.5 X10'3 (4.5-11.0)
[2017-09-11 05:53] LABS: INR 2.1 INR; PROTHROMBIN TIME 21.4 SECONDS (9.0-12.0)
[2017-09-11 06:30] LABS: ALBUMIN 1.9 G/DL (3.4-5.0); ANION GAP 9 (8-16); BLOOD UREA NITROGEN 33 MG/DL (7-18); BUN/CREATININE RATIO 27.5 (5.4-32.0); CALCIUM 8.1 MG/DL (8.5-10.1); CHLORIDE 100 MMOL/L (99-107); GLUCOSE 140 MG/DL (70-104); POTASSIUM 4.2 MMOL/L (3.5-5.1); SODIUM 134 MMOL/L (135-145); TOTAL CARBON DIOXIDE 25.3 MMOL/L (24-32); eGFR 57 ML/MIN
[2017-09-11 07:06] VITALS: BP 107/39
[2017-09-11] MEDS: lactobacillus rhamnosus 10,000 MMU CELLS/CAPSULE PO SCH ×2 (07:49→21:12)
[2017-09-11] MEDS: pantoprazole 40mg Tablet.DR PO SCH (07:50)
[2017-09-11] MEDS: vitamin D (cholecalciferol) 1,000 unit tablet PO SCH (07:53)
[2017-09-11 11:00] VITALS: BP 114/35
[2017-09-11] MEDS: insulin Lispro (HumaLOG) vial - multi-dose SQ SCH ×2 (13:36→19:38)
[2017-09-11 15:00] VITALS: BP 109/44
[2017-09-11 19:00] VITALS: BP 118/43
[2017-09-11] MEDS ORDERED: warfarin 5mg tablet PO ONE (21:00)
[2017-09-11] MEDS: atorvastatin 20mg tablet PO SCH (21:11)
[2017-09-11] MEDS: insulin glargine (Lantus) pen - multi-dose SQ SCH (21:22)
[2017-09-11 22:00] VITALS: BP 107/46
[2017-09-11] MEDS: Cefazolin 2GM/100ML NS IVPB 100 ML IV SCH (23:43)
[2017-09-12 02:00] VITALS: BP 103/38
[2017-09-12 06:00] VITALS: BP 99/38
[2017-09-12 06:24] LABS: INR 1.7 INR
[2017-09-12] MEDS: Cefazolin 2GM/100ML NS IVPB 100 ML IV SCH ×3 (07:43→23:31)
[2017-09-12] MEDS: lactobacillus rhamnosus 10,000 MMU CELLS/CAPSULE PO SCH ×2 (07:43→20:43)
[2017-09-12] MEDS: furosemide 40mg/4ml inj IV SCH (07:43)
[2017-09-12] MEDS: pantoprazole 40mg Tablet.DR PO SCH (07:44)
[2017-09-12] MEDS: vitamin D (cholecalciferol) 1,000 unit tablet PO SCH (07:44)
[2017-09-12 11:00] VITALS: BP 103/37
[2017-09-12 15:30] VITALS: BP 112/27
[2017-09-12 19:00] VITALS: BP 107/36
[2017-09-12] MEDS: insulin Lispro (HumaLOG) vial - multi-dose SQ SCH (19:01)
[2017-09-12] MEDS: atorvastatin 20mg tablet PO SCH (20:43)
[2017-09-12] MEDS ORDERED: warfarin 5mg tablet PO ONE (21:00)
[2017-09-12] MEDS: insulin glargine (Lantus) pen - multi-dose SQ SCH (21:59)
[2017-09-12 22:00] VITALS: BP 113/43
[2017-09-13 02:00] VITALS: BP 113/40
[2017-09-13 06:00] VITALS: BP 102/40
[2017-09-13 06:20] LABS: INR 2.3 INR
[2017-09-13] MEDS: furosemide 40mg/4ml inj IV SCH (08:07)
[2017-09-13] MEDS: Cefazolin 2GM/100ML NS IVPB 100 ML IV SCH ×3 (08:07→23:40)
[2017-09-13] MEDS: pantoprazole 40mg Tablet.DR PO SCH (08:08)
[2017-09-13] MEDS: lactobacillus rhamnosus 10,000 MMU CELLS/CAPSULE PO SCH ×2 (08:08→20:56)
[2017-09-13] MEDS: vitamin D (cholecalciferol) 1,000 unit tablet PO SCH (08:08)
[2017-09-13 11:00] VITALS: BP 115/46
[2017-09-13 15:00] VITALS: BP 107/59
[2017-09-13] MEDS ORDERED: VANCOMYCIN LEVEL IV NR (17:30)
[2017-09-13 18:00] VITALS: BP 119/43
[2017-09-13] MEDS: insulin Lispro (HumaLOG) vial - multi-dose SQ SCH (19:34)
[2017-09-13] MEDS: atorvastatin 20mg tablet PO SCH (20:58)
[2017-09-13] MEDS ORDERED: warfarin 2.5mg tablet PO ONE (21:00)
[2017-09-13] MEDS: insulin glargine (Lantus) pen - multi-dose SQ SCH (21:32)
[2017-09-13 22:00] VITALS: BP 102/31
[2017-09-14 02:00] VITALS: BP 120/33
[2017-09-14 07:00] VITALS: BP 96/48
[2017-09-14 07:16] LABS: BASOPHILS % (AUTO) 0.3 % (0-1); EOSINOPHILS # (AUTO) 0.3 X10'3 (0-0.9); EOSINOPHILS % (AUTO) 2.3 % (0-6); HEMATOCRIT 29.5 % (42.0-52.0); HEMOGLOBIN 9.8 g/dl (14.0-17.9); LYMPHOCYTES # (AUTO) 0.5 X10'3 (1.1-4.8); MEAN CORPUSCULAR HEMOGLOBIN 27.9 PG (27.0-31.0); MEAN CORPUSCULAR HGB CONC 33.2 % (33.0-36.5); MEAN CORPUSCULAR VOLUME 84.2 FL (78-98); MEAN PLATELET VOLUME 7.3 FL (7.4-10.4); MONOCYTES # (AUTO) 1.2 X10'3 (0-0.9); NEUTROPHILS # (AUTO) 11.5 X10'3 (1.8-7.7); NEUTROPHILS % (AUTO) 84.4 % (42-75); PLATELET COUNT 139 X10'3 (140-440); RED CELL DISTRIBUTION WIDTH 17.5 % (11.5-14.5); WHITE BLOOD COUNT 13.7 X10'3 (4.5-11.0)
[2017-09-14 07:21] LABS: INR 3.2 INR; PROTHROMBIN TIME 32.2 SECONDS (9.0-12.0)
[2017-09-14 07:39] LABS: ALANINE AMINOTRANSFERASE 7 U/L (12-78); ALBUMIN 1.9 G/DL (3.4-5.0); ALBUMIN/GLOBULIN RATIO 0.5 (1.1-1.5); ALKALINE PHOSPHATASE 75 IU/L (46-116); ANION GAP 6 (8-16); ASPARTATE AMINO TRANSFERASE 13 U/L (10-37); BILIRUBIN,TOTAL 0.6 MG/DL (0.1-1.0); BLOOD UREA NITROGEN 31 MG/DL (7-18); BUN/CREATININE RATIO 26.3 (5.4-32.0); CALCIUM 8.5 MG/DL (8.5-10.1); CHLORIDE 102 MMOL/L (99-107); CREATININE 1.18 MG/DL (0.60-1.10); GLUCOSE 127 MG/DL (70-104); POTASSIUM 4.2 MMOL/L (3.5-5.1); SODIUM 136 MMOL/L (135-145); TOTAL CARBON DIOXIDE 28.2 MMOL/L (24-32); TOTAL PROTEIN 5.6 G/DL (6.4-8.2); eGFR 58 ML/MIN
[2017-09-14] MEDS: furosemide 40mg/4ml inj IV SCH (07:43)
[2017-09-14] MEDS: lactobacillus rhamnosus 10,000 MMU CELLS/CAPSULE PO SCH ×2 (08:01→20:20)
[2017-09-14] MEDS: Cefazolin 2GM/100ML NS IVPB 100 ML IV SCH ×3 (08:01→23:50)
[2017-09-14] MEDS: pantoprazole 40mg Tablet.DR PO SCH (08:02)
[2017-09-14] MEDS: vitamin D (cholecalciferol) 1,000 unit tablet PO SCH (08:02)
[2017-09-14 11:00] VITALS: BP 113/36
[2017-09-14] MEDS: insulin Lispro (HumaLOG) vial - multi-dose SQ SCH ×2 (13:07→20:08)
[2017-09-14 15:00] VITALS: BP 110/41
[2017-09-14 18:00] VITALS: BP 114/36
[2017-09-14] MEDS: Protein Smoothie (high protein) 240ml (8oz) cup PO SCH (18:00)
[2017-09-14] MEDS: atorvastatin 20mg tablet PO SCH (20:20)
[2017-09-14] MEDS: insulin glargine (Lantus) pen - multi-dose SQ SCH (21:43)
[2017-09-14 22:00] VITALS: BP 140/44
[2017-09-15 02:00] VITALS: BP 104/36
[2017-09-15 05:46] LABS: INR 3.8 INR; PROTHROMBIN TIME 37.7 SECONDS (9.0-12.0)
[2017-09-15 06:00] VITALS: BP 106/35
[2017-09-15] MEDS: lactobacillus rhamnosus 10,000 MMU CELLS/CAPSULE PO SCH (07:34)
[2017-09-15] MEDS: vitamin D (cholecalciferol) 1,000 unit tablet PO SCH (07:35)
[2017-09-15] MEDS: pantoprazole 40mg Tablet.DR PO SCH (07:35)
[2017-09-15] MEDS: furosemide 40mg/4ml inj IV SCH (07:39)
[2017-09-15] MEDS: Cefazolin 2GM/100ML NS IVPB 100 ML IV SCH ×2 (07:49→16:05)
[2017-09-15] MEDS: Protein Smoothie (high protein) 240ml (8oz) cup PO SCH ×2 (08:53→13:34)
[2017-09-15] MEDS: insulin Lispro (HumaLOG) vial - multi-dose SQ SCH ×2 (09:05→13:26)
[2017-09-15 11:00] VITALS: BP 112/43
[2017-09-15 15:00] VITALS: BP 125/23
[2017-09-15 15:05] VITALS: BP 122/46
== END 2017-09-15 21:30 | DRG 871 ==
LOC: ER 13:02 → ED HOLD 16:10 → ORTHO 4S 23:59 → PCU 3S 09-09 09:30
PROVIDERS: ADMIT Internal Medicine; ATTEND Internal Medicine
PROC: 02HV33Z Insertion of Infusion Device into Superior Vena Cava, Percutaneous Approach (ICD-10-PCS; principal; 2017-09-15)
PROC: B548ZZA Ultrasonography of Superior Vena Cava, Guidance (ICD-10-PCS; 2017-09-15)
DX: A41.2 Sepsis due to unspecified staphylococcus (principal); I50.33 Acute on chronic diastolic (congestive) heart failure; N17.9 Acute kidney failure, unspecified; E11.42 Type 2 diabetes mellitus with diabetic polyneuropathy; E11.22 Type 2 diabetes mellitus with diabetic chronic kidney disease; I48.2 Chronic atrial fibrillation; I38 Endocarditis, valve unspecified; E86.0 Dehydration; E11.51 Type 2 diabetes mellitus with diabetic peripheral angiopathy without gangrene; N39.0 Urinary tract infection, site not specified; E78.5 Hyperlipidemia, unspecified; H91.90 Unspecified hearing loss, unspecified ear; K21.9 Gastro-esophageal reflux disease without esophagitis; R32 Unspecified urinary incontinence; N20.0 Calculus of kidney; R79.1 Abnormal coagulation profile; R00.1 Bradycardia, unspecified; I35.0 Nonrheumatic aortic (valve) stenosis; N18.9 Chronic kidney disease, unspecified; Z66 Do not resuscitate; Z74.01 Bed confinement status; Z88.0 Allergy status to penicillin; Z79.84 Long term (current) use of oral hypoglycemic drugs; Z79.899 Other long term (current) drug therapy; Z79.01 Long term (current) use of anticoagulants; Z87.442 Personal history of urinary calculi; Z68.21 Body mass index [BMI] 21.0-21.9, adult
CPT/HCPCS: 36415; 36569; 71045; 74176; 76937; 80048; 80053; 81001; 82948; 83605; 83735; 83880; 84145; 84443; 84484; 85025; 85610; 87040; 87070; 87077; 87088; 87186; 87324; 87449; 93005; 93306; 96361; 96365; 97110; 97116; 97162; 97530; 99285; A4353; A6212; A6213; A6250; C1758; J0690; J0696; J1200; J1815; J1940; J1956; J3370; J3490; J7030; J7060